=== PATIENT | female | born 1955 | race Caucasian/White ===

== ENCOUNTER 2016-09-24 09:24 | Observation (INO) | payer BC ==
[~2016-09-24] VITALS: Ht 172.7 cm; Wt 97.8 kg
[2016-09-24] MEDS ORDERED: ASPIRIN81 M2 PO (09:47)
[2016-09-24 10:52] LABS: EOSINOPHIL (%) 1.6 % (0-5); EOSINOPHIL COUNT 0.1 K/uL (0-0.3); HEMATOCRIT 36.5 % (36.0-46.0); LYMPHOCYTE COUNT 1.8 K/uL (1.0-2.8); MCH 30.1 PG (29.0-34.0); MCHC 33.7 G/DL (30.0-36.0); MCV 89.2 FL (83-99); MEAN PLAT.VOLUME 11.1 uM^3 (9.5-12.4); MONOCYTE (%) 10.2 % (3-12); MONOCYTE COUNT 0.6 K/uL (0-0.8); NEUTROPHIL COUNT 3.7 K/uL (1.8-6.4); PLATELET COUNT 233 K/uL (156-360); RBC DIS.WIDTH-CV 12.4 % (11.8-14.6); RBC DIS.WIDTH-SD 39.4 % (39-53); RED BLOOD COUNT 4.09 M/uL (3.80-5.20); WHITE BLOOD COUNT 6.3 K/uL (4.1-10.2)
[2016-09-24 11:06] LABS: CHLORIDE 104 mEq/L (99-109); POTASSIUM 4.3 mEq/L (3.7-5.4); SODIUM 140 mEq/L (136-147)
[2016-09-24 11:07] LABS: GLUCOSE 76 mg/dL (70-99)
[2016-09-24 11:08] LABS: D-DIMER ELISA 0.36 mg/L FEU (< 0.57); PROTHROMBIN TIME 10.4 (9.2-11.2); PTT 28.6 (25-32)
[2016-09-24 11:09] LABS: ANION GAP 7 MEQ/L (2-14)
[2016-09-24 11:11] LABS: GFR ESTIMATE (CALCULATED) > 59 mL/min/
[2016-09-24 11:12] LABS: UREA NITROGEN (BUN) 17 mg/dL (9-23)
[2016-09-24 11:17] LABS: TROP-I INTERPRETATION NEGATIVE; TROPONIN-I < 0.01 ng/mL (0.0-0.30)
[2016-09-24] MEDS ORDERED: MULTI-VITAMIN1 EAC4 PO (11:35)
[2016-09-24] MEDS ORDERED: VITAMIN D31000 UNI2 PO (11:36)
[2016-09-24] MEDS ORDERED: GINGER250 MG PO (11:37)
[2016-09-24] MEDS ORDERED: TURMERIC500 M1 PO (11:37)
[2016-09-24] MEDS ORDERED: EVENING PRIMRO500 MG PO (11:39)
[2016-09-24] MEDS ORDERED: GLUCOSAMINE CO1 EAC3 PO (11:39)
[2016-09-24] MEDS ORDERED: GREEN TEA CAPL1 EACH PO (11:39)
[2016-09-24] MEDS ORDERED: GINKGO BILOBA120 MG PO (11:39)
[2016-09-24] MEDS ORDERED: KRILL OIL500 MG PO (11:40)
[2016-09-24 13:24] VITALS: BP 128/76
[2016-09-24 13:24] LABS: HDL CHOLESTEROL 54 MG/DL (Desirable>=50); LDL CHOLESTEROL 135 mg/dL (Desirable<100); NON-HDL CHOLESTEROL 161 mg/dL (Desirable<160); TOTAL CHOLESTEROL 215 mg/dL (Desirable<200); TRIGLYCERIDES 128 MG/DL (Normal: <150)
[2016-09-24 16:05] VITALS: BP 131/68
[2016-09-24 18:40] LABS: TROP-I INTERPRETATION NEGATIVE; TROPONIN-I < 0.01 ng/mL (0.0-0.30)
[2016-09-24 20:00] VITALS: BP 116/71
[2016-09-24 23:22] VITALS: BP 117/70
[2016-09-25 01:06] LABS: TROP-I INTERPRETATION NEGATIVE; TROPONIN-I < 0.01 ng/mL (0.0-0.30)
[2016-09-25 04:00] VITALS: BP 119/68
[2016-09-25 06:22] LABS: HEMATOCRIT 37.2 % (36.0-46.0); MCH 30.6 PG (29.0-34.0); MCHC 33.6 G/DL (30.0-36.0); MCV 91.2 FL (83-99); MEAN PLAT.VOLUME 11.2 uM^3 (9.5-12.4); PLATELET COUNT 223 K/uL (156-360); RBC DIS.WIDTH-CV 12.8 % (11.8-14.6); RBC DIS.WIDTH-SD 42.3 % (39-53); RED BLOOD COUNT 4.08 M/uL (3.80-5.20); WHITE BLOOD COUNT 6.5 K/uL (4.1-10.2)
[2016-09-25 06:46] LABS: ANION GAP 8 MEQ/L (2-14); CHLORIDE 104 MEQ/L (99-109); GFR ESTIMATE (CALCULATED) > 59 mL/min/; GLUCOSE 91 mg/dL (70-99); SAMPLE HEMOLYSIS CHECK 0; SAMPLE ICTERIC CHECK 0; SAMPLE LIPEMIA CHECK 0; SODIUM 139 MEQ/L (136-147); UREA NITROGEN (BUN) 14 mg/dL (9-23)
[2016-09-25 07:14] LABS: Estimated Average Glucose 120 mg/dL (70-123); HEMOGLOBIN A1c (GLYCOHEMOGLOB) 5.8 % HGB (Below 5.7)
[2016-09-25 07:45] VITALS: BP 134/79
== END 2016-09-25 11:45 | disposition home or self-care (01) ==
LOC: EME 09:24 → EDOF 11:53 → 5WEST 11:53
PROVIDERS: Emergency Medicine; Internal Medicine
DX: R07.9 Chest pain, unspecified (principal); Z82.49 Family history of ischemic heart disease and other diseases of the circulatory system; Z79.82 Long term (current) use of aspirin
CPT/HCPCS: 71010; 80048; 80061; 83036; 84484; 85025; 85027; 85379; 85610; 85730; 93005; 99281; 99285; G0378; J1650; J7030